=== PATIENT | male | born 1980 | race Caucasian/White ===

== ENCOUNTER 2019-06-01 21:26 | Inpatient (IN) | payer SELFPAY ==
[~2019-06-01] VITALS: Ht 172.7 cm; Wt 113.4 kg
[~2019-06-01 21:26] MED LIST: BP PILL
[2019-06-01] MEDS ORDERED: ASPIRIN 325 MG TABLET ONE (21:37)
[2019-06-01] MEDS ORDERED: NITROGLYCERIN 0.4 MG/TAB BOTTLE SL ONE ×2 (21:38→21:45)
[2019-06-01] MEDS ORDERED: AMLO5TAB9 PO (21:44)
[2019-06-01] MEDS ORDERED: NITROGLYCERIN OINT 1 GM PACKET TP ONE ×2 (21:45→22:00)
[2019-06-01] MEDS ORDERED: ONDANSETRON 4 MG/2 ML VIAL IV ONE (21:45)
[2019-06-01] MEDS ORDERED: ACETAMINOPHEN ES 500 MG TABLET PO ONE (21:45)
[2019-06-01] MEDS ORDERED: ASPIRIN 325 MG TABLET PO ONE (21:45)
--- NOTE | 2019-06-01 21:45 | NUR ---
Patient present with c/o chest painfirst dose of nitro sl given at 2145 bp 179/108 p75 rates pain3/10
[2019-06-01 21:49] LABS: BASOPHILS % (AUTO) 0.5 % (0.0-2.0); EOSINOPHILS # (AUTO) 0.2 K/uL (0.0-0.7); EOSINOPHILS % (AUTO) 2.2 % (0.0-7.0); HEMATOCRIT 42.9 % (36.7-47.1); HEMOGLOBIN 14.3 g/dL (12.5-16.3); LYMPHOCYTES # (AUTO) 3.1 K/uL (20.0-40.0); LYMPHOCYTES % (AUTO) 35.3 % (20.5-51.5); MEAN CORPUSCULAR HEMOGLOBIN 28.1 uug (23.8-33.4); MEAN CORPUSCULAR HGB CONC 33 g/dL (32.5-36.3); MEAN CORPUSCULAR VOLUME 84.1 fL (73.0-96.2); MONOCYTES # (AUTO) 0.9 K/uL (2.0-10.0); MONOCYTES % (AUTO) 9.7 % (0.0-11.0); NEUTROPHILS # (AUTO) 4.6 K/uL (1.8-8.9); NEUTROPHILS % (AUTO) 52.3 % (38.5-71.5); PLATELET COUNT (AUTO) 177 K/uL (152-348); WHITE BLOOD COUNT (AUTO) 8.8 K/uL (3.6-10.2)
--- NOTE | 2019-06-01 21:50 | NUR ---
patient rates chest pain 2/10 bp 160/96 p75 second dose of nitro sl given
--- NOTE | 2019-06-01 21:55 | NUR ---
Patient states chest discomfort is is very little rates discomfort 1/10 third dose of nitro given bp 139/69 p57 c/o mild headace tylenol given and zofran for nausea. placed on O2 2l n/c.
[2019-06-01] MEDS ORDERED: ACETAMINOPHEN ES 500 MG TABLET ONE (21:59)
[2019-06-01] MEDS ORDERED: ONDANSETRON 4 MG/2 ML VIAL ONE (21:59)
[2019-06-01 22:06] LABS: CREATININE 0.9 mg/dL (0.6-1.3); POTASSIUM 3.3 mmol/L (3.5-5.1)
--- NOTE | 2019-06-01 22:15 | NUR ---
patient states I have no futher c/o chest pain
[2019-06-01 22:18] LABS: BILIRUBIN,DIRECT 0.1 mg/dL (0.0-0.2); BILIRUBIN,TOTAL 0.4 mg/dL (0.2-1.0)
[2019-06-01] MEDS ORDERED: POTASSIUM BICARBONATE/CIT AC 25 MEQ TABLET.EFF ONE (22:27)
[2019-06-01] MEDS ORDERED: POTASSIUM BICARBONATE/CIT AC 25 MEQ TABLET.EFF PO ONE (22:30)
--- NOTE | 2019-06-01 22:58 | NUR ---
Patient being admitted verbalizes understanding, Nitro paste applied to chest wall
--- NOTE | 2019-06-01 23:00 | NUR ---
Patient is a 39 year old male admitted to telemetry from emergency dept. with diagnosis of "rule out ACS." Patient's is at the bedside. Patient denies chest pain or any type of discomfort, or shortness of breath. Nasal cannula 2L attached to patient. Patient attached to tele monitor with sinus rhythm on the monitor. IV in right upper arm 20G flushing, patent, and intact. Vital signs within normal limits. Admission orders carried out. Immediate needs attended. Will continue to monitor patient
[2019-06-01] MEDS ORDERED: MAGNESIUM HYDROXIDE 30 ML LIQUID UDC PO PRN (23:15)
[2019-06-01] MEDS ORDERED: ACETAMINOPHEN 325 MG TABLET PO PRN (23:15)
[2019-06-01] MEDS ORDERED: ONDANSETRON 4 MG/2 ML VIAL IV PRN (23:15)
[2019-06-01] MEDS ORDERED: HYDROCODONE/APAP 5-325MG TABLET PO PRN (23:15)
[2019-06-01] MEDS ORDERED: ATORVASTATIN 20 MG TABLET PO SCH (23:15)
[2019-06-01] MEDS ORDERED: NITROGLYCERIN 0.4 MG/TAB BOTTLE SL PRN (23:30)
[2019-06-01 23:42] VITALS: BP 127/80
[2019-06-02 00:46] VITALS: BP 134/80
[2019-06-02 05:37] VITALS: BP 133/74
[2019-06-02 06:36] LABS: BASOPHILS % (AUTO) 0.5 % (0.0-2.0); EOSINOPHILS # (AUTO) 0.2 K/uL (0.0-0.7); EOSINOPHILS % (AUTO) 1.8 % (0.0-7.0); HEMATOCRIT 43.1 % (36.7-47.1); HEMOGLOBIN 13.9 g/dL (12.5-16.3); LYMPHOCYTES # (AUTO) 2.8 K/uL (20.0-40.0); LYMPHOCYTES % (AUTO) 32.9 % (20.5-51.5); MEAN CORPUSCULAR HEMOGLOBIN 27.6 uug (23.8-33.4); MEAN CORPUSCULAR HGB CONC 32 g/dL (32.5-36.3); MEAN CORPUSCULAR VOLUME 85.3 fL (73.0-96.2); MONOCYTES # (AUTO) 0.7 K/uL (2.0-10.0); NEUTROPHILS # (AUTO) 4.8 K/uL (1.8-8.9); NEUTROPHILS % (AUTO) 56.8 % (38.5-71.5); PLATELET COUNT (AUTO) 162 K/uL (152-348); RED BLOOD CELL COUNT(AUTO) 5.05 MIL/uL (4.06-5.63); WHITE BLOOD COUNT (AUTO) 8.5 K/uL (3.6-10.2)
[2019-06-02 06:52] LABS: CREATININE 0.9 mg/dL (0.6-1.3); MAGNESIUM 2.1 mg/dL (1.8-2.4); PHOSPHOROUS 4.8 mg/dL (2.5-4.9); POTASSIUM 3.7 mmol/L (3.5-5.1)
--- NOTE | 2019-06-02 07:15 | NUR ---
PATIENT SLEPT WELL THROUGHOUT THE NIGHT. SINUS RHYTHM ON THE TELE MONITOR. PATIENT DENIES CHEST PAIN THROUGHOUT THE NIGHT. NO SHORTNESS OF BREATH. O2 INTACT. CALL LIGHT WITHIN REACH. NEEDS ATTENDED. COMFORT PROVIDED. WILL ENDORSE ACCORDINGLY
[2019-06-02] MEDS ORDERED: ASPIRIN 81 MG TAB.CHEW PO SCH (09:00)
[2019-06-02] MEDS ORDERED: hydrALAZINE HCL 10 MG TABLET PO SCH (09:00)
--- NOTE | 2019-06-02 09:01 | NUR ---
RECEIVED PATIENT IN BED AWAKE, ALERT AND ORIENTED X3 WITH HOB ELEVATED. NO S/S OF ACUTE DISTRESS OR SOB NOTED AT THIS TIME , C/O PAIN 08/04 , DENIES PAIN MEDICATION. PATIENT HAS IV INTACT AND PATENT . WILL CONTINUE TO MONITOR.
[2019-06-02 11:32] VITALS: BP 144/92
[2019-06-02 15:33] VITALS: BP 148/92
--- NOTE | 2019-06-02 19:36 | NUR ---
PT DISCHARGED AND ASSISTED BY RN UNTIL IN THE PARKING LOT. TAKEN OFF THE ID WRISTBAND AND IV. DISCHARGE PAPERS GIVEN. DISCHARGE INSTRUCTIONS GIVEN. PT UNDERSTOOD. PT IN NO ACUTE DISTRESS. PT INSTRUCTED TO FOLLOW UP WITH HIS PRIMARY PHYSICIAN AND GO TO THE ER IF HE HAS CHEST PAIN. PT STABLE. BELONGING LIST DONE. PT WITH HIS . WILL BE THE ONE DRIVING HOME.
== END 2019-06-02 22:34 | disposition home or self-care (01) | DRG 305 ==
LOC: ER 21:26 → TELE3 22:58
PROVIDERS: ADMIT Nurse Practitioner Acute Care; ATTEND Nurse Practitioner Acute Care
DX: I16.0 Hypertensive urgency (principal); I11.9 Hypertensive heart disease without heart failure; E87.6 Hypokalemia; E66.9 Obesity, unspecified; Z68.38 Body mass index [BMI] 38.0-38.9, adult; Z82.49 Family history of ischemic heart disease and other diseases of the circulatory system; Z87.891 Personal history of nicotine dependence
CPT/HCPCS: 36415; 70030-TC; 71045; 83735; 84100; 85025; 85730; 93005; 93307; A4663; A9150; G0378; J2405